=== PATIENT | male | born 1950 | race Caucasian/White ===

== ENCOUNTER → 2019-08-16 | Outpatient (CLI) | payer MEDICARE ==
--- NOTE | 2019-08-16 13:53 | XR ---
EXAMINATION TYPE: XR lumbar spine 2 or 3V DATE OF EXAM: 08/16/2019 COMPARISON: None HISTORY: Pain and numbness TECHNIQUE: Lumbar spine is examined in 3 views FINDINGS: There is a scoliosis present with convexity to the right centered at L3. There 5 lumbar-typ e vertebral bodies. The pedicles are intact. There is loss of disc height L3-4. Mild loss of disc hei ght is present L4-5. Mild spondylosis is present. IMPRESSION: 1. Degenerative disc changes greatest at L3-L4 with some mild posterior disc space degenerative almeida ge L4-5 2. Scoliosis with the convexity to the right
--- NOTE | 2019-08-16 13:54 | XR ---
EXAMINATION TYPE: XR Hip Bilateral Complete DATE OF EXAM: 08/16/2019 COMPARISON: None HISTORY: Pain and numbness TECHNIQUE: Right hip is examined in 2 projections. Left hip is examined in 2 projections. FINDINGS: Femoral heads articulate with the acetabulum. No acute fractures or dislocations are eviden t. IMPRESSION: 1. Normal bilateral hips
== END | disposition home or self-care (01) ==
LOC: LABWHC1 13:28
PROVIDERS: ATTEND Nurse Practitioner Family
DX: M47.816 Spondylosis without myelopathy or radiculopathy, lumbar region (principal); M41.86 Other forms of scoliosis, lumbar region; R52 Pain, unspecified; R20.0 Anesthesia of skin
CPT/HCPCS: 72100; 73521

== ENCOUNTER 2019-10-04 09:02 | Day surgery (SDC) | payer BC, MEDICARE ==
[2019-09-29 11:16] VITALS: BMI 33.4
[~2019-10-04 09:02] MED LIST: LACTATED RINGERS 1,000 ML IV SCH; LIDOCAINE 1% (10MG/ML) FOR IV START INTRADERMA PRN
[2019-10-04 09:28] VITALS: TEMP 98.7
[2019-10-04] MEDS ORDERED: PROPOFOL 10 MG/ML 20 ML VIAL IV ONE (12:01)
--- NOTE | 2019-10-04 12:03 | P.GSHP ---
History of Present Illness H&P Date: 10/04/19 Chief Complaint: Colon cancer screening Patient or today for colonoscopy. He has not had one previously. No bowel complaints. No family history of colon cancer. Past Medical History Past Medical History: Hypertension History of Any Multi-Drug Resistant Organisms: None Reported Past Surgical History: Orthopedic Surgery Additional Past Surgical History / Comment(s): hand surg. Past Anesthesia/Blood Transfusion Reactions: No Reported Reaction Smoking Status: Never smoker - Past Family History Mother Family Medical History: No Reported History Medications and Allergies Home Medications Medication Instructions Recorded Confirmed Type Blood Pressure Med 1 tab PO DAILY 09/29/19 09/29/19 History amLODIPine BESYLATE 5 mg PO DAILY 10/04/19 10/04/19 History Allergies Allergy/AdvReac Type Severity Reaction Status Date / Time No Known Allergies Allergy Verified 10/04/19 09:16 Surgical - Exam Vital Signs Temp Pulse Resp BP Pulse Ox 98.7 F 116 H 17 187/99 98 10/04/19 09:26 10/04/19 09:26 10/04/19 09:26 10/04/19 09:26 10/04/19 09:26 Physical exam: General: Well-developed, well-nourished HEENT: Normocephalic, sclerae nonicteric Abdomen: Nontender, nondistended Extremities: No edema Neuro: Alert and oriented Assessment and Plan (1) Colon cancer screening Narrative/Plan: Will proceed with colonoscopy this time Current Visit: Yes Status: Acute Code(s): Z12.11 - ENCOUNTER FOR SCREENING FOR MALIGNANT NEOPLASM OF COLON SNOMED Code(s): 930890655
--- NOTE | 2019-10-04 12:23 | P.PCN ---
Date of Procedure: 10/04/19 Procedure(s) Performed: PREOPERATIVE DIAGNOSIS: Colon cancer screening POSTOPERATIVE DIAGNOSIS: Cecal polyp, sigmoid polyp, rectal polyp, diverticulosis PROCEDURE: Colonoscopy with snare polypectomy ANESTHESIA: MAC SURGEON: Marcelo Boone M.D. SPECIMENS: Colon polyps ENDOSCOPIC PROCEDURE: The patient was placed on the endoscopy table in the left decubitus position. The Olympus colonoscope was inserted into the anus and passed under direct visualization to the base of the cecum. The appendiceal orifice was visualized. From that point the scope was slowly withdrawn inspecting all surfaces carefully. There was noted be a small polyp at the base of the cecum. This was removed using the snare with cautery technique. The remainder of the cecum and ascending transverse and descending colon appeared normal. In the sigmoid colon a small polyp was identified and removed in a similar fashion. The rectum another small polyp was identified and removed in a similar fashion. There was mild left-sided diverticulosis present. Digital rectal examination was normal. The patient was taken to the recovery room in stable condition per anesthesia guidelines. RECOMMENDATIONS: Await Biopsy results. Anticipate follow-up colonoscopy 5 years.
[2019-10-04 12:25] VITALS: BP 125/75; PULSE 80
[2019-10-04 13:05] VITALS: RESP 18
== END 2019-10-04 13:06 | disposition home or self-care (01) ==
LOC: ORWHC2ENDO 09:02
PROVIDERS: ATTEND Surgery
DX: Z12.11 Encounter for screening for malignant neoplasm of colon (principal); D12.0 Benign neoplasm of cecum; D12.5 Benign neoplasm of sigmoid colon; D12.8 Benign neoplasm of rectum; K57.30 Diverticulosis of large intestine without perforation or abscess without bleeding; I10 Essential (primary) hypertension; Z87.19 Personal history of other diseases of the digestive system
CPT/HCPCS: 88305; 45385; J2704